=== PATIENT | male | born 1950 | race Two or more races ===

== ENCOUNTER 2017-11-12 08:05 | Outpatient (CLI) | payer OTHER | END 2017-11-12 08:10 | disposition home or self-care (01) | LOC: RX STUDY 08:05 | DX: R13.19 Other dysphagia (principal) ==

== ENCOUNTER 2018-12-02 08:36 | Emergency (ER) | payer OTHER ==
[~2018-12-02] VITALS: Ht 177.8 cm; Wt 88.5 kg
[2018-12-02] MEDS ORDERED: TAMS0.4C (09:08)
[2018-12-02] MEDS ORDERED: ASPIR-LOW81 MG (09:08)
[2018-12-02] MEDS ORDERED: VASOTEC5 MG (09:08)
[2018-12-02] MEDS ORDERED: TOPROL XL25 MG (09:08)
[2018-12-02] MEDS ORDERED: AMOX1TAB5 PO (09:51)
== END 2018-12-02 10:19 | disposition home or self-care (01) ==
LOC: ER 08:36
DX: J02.9 Acute pharyngitis, unspecified (principal)

== ENCOUNTER 2019-01-04 09:34 | Outpatient (CLI) | payer OTHER ==
[~2019-01-04 09:34] MED LIST: AMOX1TAB5 PO; ASPIR-LOW81 MG; TAMS0.4C; TOPROL XL25 MG; VASOTEC5 MG
== END 2019-01-04 14:18 | disposition home or self-care (01) ==
LOC: NUCLEAR 09:34
DX: E05.90 Thyrotoxicosis, unspecified without thyrotoxic crisis or storm (principal)
CPT/HCPCS: 78012; A9531

== ENCOUNTER → 2019-01-05 | Outpatient (CLI) | payer OTHER | END | disposition home or self-care (01) | LOC: NUCLEAR 08:55 | DX: E05.90 Thyrotoxicosis, unspecified without thyrotoxic crisis or storm (principal) | CPT/HCPCS: 78013; A9512 ==

== ENCOUNTER 2019-12-13 07:17 | Outpatient (CLI) | payer OTHER | END 2019-12-13 15:59 | disposition home or self-care (01) | LOC: NUCLEAR 07:17 | PROVIDERS: ATTEND Internal Medicine Sports Medicine | DX: E05.90 Thyrotoxicosis, unspecified without thyrotoxic crisis or storm (principal) | CPT/HCPCS: 78012; A9528 ==

== ENCOUNTER 2020-04-18 08:23 | Outpatient (CLI) | payer OTHER | END 2020-04-18 08:27 | disposition home or self-care (01) | LOC: NUCLEAR 08:23 | PROVIDERS: ATTEND Internal Medicine Sports Medicine | DX: E05.90 Thyrotoxicosis, unspecified without thyrotoxic crisis or storm (principal); I25.10 Atherosclerotic heart disease of native coronary artery without angina pectoris; E04.8 Other specified nontoxic goiter; E04.1 Nontoxic single thyroid nodule | CPT/HCPCS: 78012; A9528 ==

== ENCOUNTER 2020-04-20 08:59 | Outpatient (CLI) | payer OTHER | END 2020-04-20 09:12 | disposition home or self-care (01) | LOC: NUCLEAR 08:59 | PROVIDERS: ATTEND Internal Medicine Sports Medicine | DX: E05.90 Thyrotoxicosis, unspecified without thyrotoxic crisis or storm (principal); I25.10 Atherosclerotic heart disease of native coronary artery without angina pectoris; E04.8 Other specified nontoxic goiter; E04.1 Nontoxic single thyroid nodule | CPT/HCPCS: 78014; A9528 ==

== ENCOUNTER 2023-05-01 09:59 | Inpatient (IN) | payer OTHER ==
[~2023-05-01] VITALS: Ht 177.8 cm; Wt 78.9 kg
[2023-05-01] MEDS ORDERED: FINASTERIDE1 MG (10:13)
[2023-05-01] MEDS ORDERED: PANTOPRAZOLE SODIUM 40 MG/VIAL VIAL IV ONE (10:30)
[2023-05-01] MEDS ORDERED: FAMOTIDINE/PF 20 MG/2 ML VIAL IV PUSH ONE (10:30)
[2023-05-01] MEDS ORDERED: 0.9 % SODIUM CHLORIDE 500 ML IV STA (10:32)
[2023-05-01] MEDS ORDERED: METOCLOPRAMIDE HCL 5 MG/ML VIAL IV ONE (10:45)
[2023-05-01] MEDS ORDERED: SUCRALFATE 1 G TABLET PO ONE (10:45)
[2023-05-01 11:03] LABS: HEMATOCRIT 38.2 % (39.0-48.0); MEAN CELL VOLUME 87.1 fL (80.0-100.00); MEAN CORPUSCULAR HEMOGLOBIN 29.6 pg (27.00-32.0); MEAN CORPUSCULAR HGB CONC 33.9 g/dl (32.0-36.0); PLATELET COUNT 166 K/uL (150-450); RED BLOOD COUNT 4.38 M/uL (4.00-6.00); RED CELL DISTRIBUTION WIDTH 15.8 % (11.5-14.5)
[2023-05-01 11:39] LABS: ALBUMIN 3.4 gm/dL (3.4-5.0); BILIRUBIN TOTAL 0.62 mg/dL (0.3-1.2); CALCIUM 9.6 mg/dL (8.5-10.1); CREATININE SERUM 1.45 mg/dL (0.70-1.30); GFR 47.57; GLOBULINA 2.7 G/DL (2.4-3.5); INR 1.07; PARTIAL THROMBOPLASTIN TIME 31.2 SECONDS (22.0-34.0); POTASSIUM 4.36 mEq/L (3.5-5.1); PROTHROMBIN TIME 11.2 SECONDS (9.0-11.5); TOTAL PROTEIN 6.1 gm/dL (6.4-8.2)
[2023-05-01] MEDS ORDERED: PANTOPRAZOLE SODIUM 40 MG/VIAL VIAL IV SCH (12:15)
[2023-05-01] MEDS ORDERED: 0.9 % SODIUM CHLORIDE 1,000 ML IV SCH (17:15)
[2023-05-01] MEDS ORDERED: ENALAPRIL MALEATE 5 MG TABLET PO SCH (17:24)
[2023-05-01] MEDS ORDERED: ACETAMINOPHEN 500 MG GEL..CAP PO PRN (17:30)
[2023-05-01] MEDS ORDERED: ONDANSETRON HCL 4 MG in 0.9 % SODIUM CHLORIDE 50 ML IV PRN (17:30)
[2023-05-01 18:50] LABS: MAGNESIUM 2.2 mg/dL (1.8-2.4); PHOSPHOROUS 3.1 mg/dL (2.5-4.9)
[2023-05-01 19:26] LABS: PH,URINE 5.5 (5.0-8.0); URINE APPEARANCE Cloudy; URINE BILIRRUBIN Negative (NEGATIVE); URINE BLOOD Moderate; URINE COLOR Yellow; URINE GLUCOSE Negative (NEGATIVE); URINE LEUKOCYTE Large; URINE NITRATE Negative; URINE UROBILINOGEN 0.2 E.U./dl
[2023-05-01 19:30] LABS: URINE BACTERIA 3405.6 uL (0.0-1933); URINE RBC 331.5 uL (0.0-20.8)
[2023-05-01 19:41] LABS: URINE PROTEIN 100 (NEGATIVE)
[2023-05-01] MEDS ORDERED: MEPERIDINE HCL/PF 25 MG/ML VIAL IM SCH (21:00)
[2023-05-02] MEDS ORDERED: METOPROLOL SUCCINATE 25 MG TAB.SR.24H PO SCH (09:00)
[2023-05-02] MEDS ORDERED: TAMSULOSIN HCL 0.4 MG CAP PO SCH (09:00)
[2023-05-03 07:19] LABS: HEMATOCRIT 36.9 % (39.0-48.0); HEMOGLOBIN 12.4 g/dL (13-16.00); MEAN CELL VOLUME 86.6 fL (80.0-100.00); MEAN CORPUSCULAR HEMOGLOBIN 29.1 pg (27.00-32.0); MEAN CORPUSCULAR HGB CONC 33.5 g/dl (32.0-36.0); PLATELET COUNT 141 K/uL (150-450); RED BLOOD COUNT 4.26 M/uL (4.00-6.00); RED CELL DISTRIBUTION WIDTH 15.6 % (11.5-14.5)
[2023-05-03 08:01] LABS: BILIRUBIN TOTAL 0.69 mg/dL (0.3-1.2); CALCIUM 8.7 mg/dL (8.5-10.1); CREATININE SERUM 0.96 mg/dL (0.70-1.30); GFR 76.57; GLOBULINA 2.4 G/DL (2.4-3.5); POTASSIUM 3.91 mEq/L (3.5-5.1); TOTAL PROTEIN 5.4 gm/dL (6.4-8.2)
[2023-05-03] MEDS ORDERED: CEFTRIAXONE SODIUM 2,000 MG VIAL IV SCH (13:27)
[2023-05-03] MEDS ORDERED: CEFTRIAXONE SODIUM 2,000 MG VIAL IV STA (13:27)
[2023-05-04] MEDS ORDERED: FAMOtidine 10 MG/ML (4ML VIAL) IV PUSH STA (20:44)
[2023-05-05] MEDS ORDERED: MIDAZOLAM HCL 2 MG/2 ML VIAL IV ONE (12:45)
[2023-05-05] MEDS ORDERED: fentaNYL CITRATE 50 MCG/ML AMPUL IV ONE (12:45)
[2023-05-05] MEDS ORDERED: PANTOPRAZOLE SODIUM 40 MG/VIAL VIAL IV SCH (17:22)
[2023-05-05] MEDS ORDERED: FAMOTIDINE/PF 20 MG/2 ML VIAL IV SCH (18:48)
[2023-05-05] MEDS ORDERED: HYOSCYAMINE SULFATE 0.125 MG TAB.SUBL SL PRN (19:00)
[2023-05-06] MEDS ORDERED: SUCRALFATE 1 G TABLET PO SCH (09:00)
[2023-05-06] MEDS ORDERED: LACTOBACILLUS ACIDOPHILUS 1 CAP CAP PO SCH (10:09)
[2023-05-06] MEDS ORDERED: MEROPENEM 500 MG in 0.9 % SODIUM CHLORIDE 50 ML IV SCH (12:00)
[2023-05-06 17:39] LABS: HEMATOCRIT 40.1 % (39.0-48.0); HEMOGLOBIN 13.4 g/dL (13-16.00); MEAN CELL VOLUME 88.9 fL (80.0-100.00); MEAN CORPUSCULAR HEMOGLOBIN 29.8 pg (27.00-32.0); MEAN CORPUSCULAR HGB CONC 33.5 g/dl (32.0-36.0); PLATELET COUNT 152 K/uL (150-450); RED BLOOD COUNT 4.51 M/uL (4.00-6.00); RED CELL DISTRIBUTION WIDTH 15.3 % (11.5-14.5)
[2023-05-06 18:22] LABS: ALBUMIN 3.1 gm/dL (3.4-5.0); BILIRUBIN TOTAL 0.62 mg/dL (0.3-1.2); CALCIUM 9.1 mg/dL (8.5-10.1); CREATININE SERUM 1.18 mg/dL (0.70-1.30); GFR 60.34; GLOBULINA 2.5 G/DL (2.4-3.5); POTASSIUM 3.39 mEq/L (3.5-5.1); TOTAL PROTEIN 5.6 gm/dL (6.4-8.2)
[2023-05-06 18:31] LABS: C-REACTIVE PROTEIN 1.36 MG/DL (0.00-0.29)
[2023-05-07] MEDS ORDERED: SODIUM CL 0.9% 50 ML IV.SOLN IV ONE (15:47)
[2023-05-07] MEDS ORDERED: RINGERS SOLUTION,LACTATED 1,000 ML IV SCH (18:30)
[2023-05-08 07:18] LABS: HEMATOCRIT 34.3 % (39.0-48.0); HEMOGLOBIN 11.7 g/dL (13-16.00); MEAN CELL VOLUME 87.2 fL (80.0-100.00); MEAN CORPUSCULAR HEMOGLOBIN 29.8 pg (27.00-32.0); MEAN CORPUSCULAR HGB CONC 34.2 g/dl (32.0-36.0); PLATELET COUNT 135 K/uL (150-450); RED BLOOD COUNT 3.94 M/uL (4.00-6.00); RED CELL DISTRIBUTION WIDTH 15.5 % (11.5-14.5)
[2023-05-08 07:59] LABS: CALCIUM 9.1 mg/dL (8.5-10.1); CREATININE SERUM 1.02 mg/dL (0.70-1.30); GFR 71.39; POTASSIUM 3.39 mEq/L (3.5-5.1)
[2023-05-12 06:48] LABS: HEMATOCRIT 32.8 % (39.0-48.0); HEMOGLOBIN 11.3 g/dL (13-16.00); MEAN CELL VOLUME 88.3 fL (80.0-100.00); MEAN CORPUSCULAR HEMOGLOBIN 30.3 pg (27.00-32.0); MEAN CORPUSCULAR HGB CONC 34.4 g/dl (32.0-36.0); PLATELET COUNT 149 K/uL (150-450); RED BLOOD COUNT 3.71 M/uL (4.00-6.00); RED CELL DISTRIBUTION WIDTH 15.1 % (11.5-14.5)
[2023-05-12 07:06] LABS: ALBUMIN 2.5 gm/dL (3.4-5.0); BILIRUBIN TOTAL 0.34 mg/dL (0.3-1.2); CALCIUM 8.8 mg/dL (8.5-10.1); CREATININE SERUM 0.9 mg/dL (0.70-1.30); GFR 82.49; GLOBULINA 2.4 G/DL (2.4-3.5); POTASSIUM 3.72 mEq/L (3.5-5.1); TOTAL PROTEIN 4.9 gm/dL (6.4-8.2)
[2023-05-12] MEDS ORDERED: TAMS0.4C PO (15:10)
[2023-05-12] MEDS ORDERED: TOPROL XL25 M1 PO (15:10)
[2023-05-12] MEDS ORDERED: HYOSCYAMINE0.125 M1 SL (15:10)
[2023-05-12] MEDS ORDERED: PROTONIX40 MG PO (15:10)
[2023-05-12] MEDS ORDERED: PEPCID AC20 MG PO (15:10)
[2023-05-12] MEDS ORDERED: ENALAPRIL MALEAT5 MG PO (15:10)
[2023-05-12] MEDS ORDERED: CARAFATE1 GM PO (15:10)
== END 2023-05-12 18:05 | disposition home or self-care (01) | DRG 392 ==
LOC: ER 09:59 → SEC-K 17:38 → MEDJ 17:38
PROVIDERS: Emergency Medicine; General Practice; Internal Medicine Gastroenterology; Internal Medicine Nephrology; ADMIT Internal Medicine; ATTEND Internal Medicine
PROC: BW40ZZZ Ultrasonography of Abdomen (ICD-10-PCS; 2023-05-01)
PROC: BW21ZZZ Computerized Tomography (CT Scan) of Abdomen and Pelvis (ICD-10-PCS; 2023-05-01)
PROC: 0DB58ZX Excision of Esophagus, Via Natural or Artificial Opening Endoscopic, Diagnostic (ICD-10-PCS; principal; 2023-05-05)
PROC: 0DB78ZX Excision of Stomach, Pylorus, Via Natural or Artificial Opening Endoscopic, Diagnostic (ICD-10-PCS; 2023-05-05)
PROC: 0DB68ZX Excision of Stomach, Via Natural or Artificial Opening Endoscopic, Diagnostic (ICD-10-PCS; 2023-05-05)
PROC: 0DB28ZX Excision of Middle Esophagus, Via Natural or Artificial Opening Endoscopic, Diagnostic (ICD-10-PCS; 2023-05-05)
PROC: BW30YZZ Magnetic Resonance Imaging (MRI) of Abdomen using Other Contrast (ICD-10-PCS; 2023-05-06)
DX: K29.00 Acute gastritis without bleeding (principal); N17.9 Acute kidney failure, unspecified; E87.1 Hypo-osmolality and hyponatremia; N39.0 Urinary tract infection, site not specified; Z16.12 Extended spectrum beta lactamase (ESBL) resistance; E86.0 Dehydration; R13.10 Dysphagia, unspecified; I10 Essential (primary) hypertension; B96.1 Klebsiella pneumoniae [K. pneumoniae] as the cause of diseases classified elsewhere; E78.5 Hyperlipidemia, unspecified; K21.9 Gastro-esophageal reflux disease without esophagitis
CPT/HCPCS: 74185

== ENCOUNTER → 2024-08-21 | Emergency (ER) | payer OTHER ==
[~2024-08-21] VITALS: Ht 177.8 cm; Wt 83.9 kg
[~2024-08-21] MED LIST changes: +CARAFATE1 GM PO; +ENALAPRIL MALEAT5 MG PO; +FINASTERIDE1 MG; +HYOSCYAMINE0.125 M1 SL; +PEPCID AC20 MG PO; +PROTONIX40 MG PO; +TAMS0.4C PO; +TOPROL XL25 M1 PO; +hydrOXYzine PAMOATE 50 MG CAPSULE PO ONE; +hydrOXYzine PAMOATE 50 MG CAPSULE PO STA
== END | disposition home or self-care (01) ==
LOC: ER 21:23
DX: L50.8 Other urticaria (principal); Z88.2 Allergy status to sulfonamides